=== PATIENT | male | born 1945 | race Caucasian/White ===

== ENCOUNTER → 2020-08-24 | Outpatient (REF) | payer OTHER, BC | LOC: M LAB REF 17:38 | PROVIDERS: ATTEND Dermatology | DX: Z85.820 Personal history of malignant melanoma of skin (principal) ==

== ENCOUNTER → 2021-01-14 | Outpatient (CLI) | payer MEDICARE, BC ==
[~2021-01-14] MED LIST: ATOR1TAB21 PO; BENA1TAB32 PO; EZET10TA21 PO; MELO15TA28 PO; METF-838 PO; PIOG1TAB37 PO; VITAD400CA PO
== END ==
LOC: M LABSMTC 11:03
PROVIDERS: ATTEND Anesthesiology
DX: Z01.812 Encounter for preprocedural laboratory examination (principal); Z20.822 Contact with and (suspected) exposure to COVID-19

== ENCOUNTER 2021-01-18 07:59 | Day surgery (SDC) | payer MEDICARE ==
[~2021-01-18] VITALS: Ht 188 cm; Wt 114.8 kg
[~2021-01-18 07:59] MED LIST changes: +NS 1,000 ML IV ONE
[2021-01-18] MEDS ORDERED: propofoL 200 MG/20 ML VIAL As Ordered ONE (09:23)
--- NOTE | 2021-01-18 09:46 | ROOR ---
Patient Name: Irwin Villanueva Procedure Date: 01/18/2021 9:17 AM Date of : 1945 Age: 75 Room: [facility] Gender: Male Note Status: Finalized Procedure: Colonoscopy Indications: Screening for colorectal malignant neoplasm, Incidental - Positive fecal immunochemical test Providers: Adriel Bennett MD Referring MD: Joaquin Baldwin MD Requesting Provider: Medicines: Monitored Anesthesia Care Complications: No immediate complications. Procedure: Pre-Anesthesia Assessment: - Prior to the procedure, a History and Physical was performed, and patient medications and allergies were reviewed. The patient is competent. The risks and benefits of the procedure and the sedation options and risks were discussed with the patient. All questions were answered and informed consent was obtained. Patient identification and proposed procedure were verified by the physician, the nurse and the anesthesiologist in the procedure room. Mental Status Examination: alert and oriented. Airway Examination: normal oropharyngeal airway and neck mobility. Respiratory Examination: clear to auscultation. CV Examination: normal. Prophylactic Antibiotics: The patient does not require prophylactic antibiotics. Prior Anticoagulants: The patient has taken no previous anticoagulant or antiplatelet agents. ASA Grade Assessment: II - A patient with mild systemic disease. After reviewing the risks and benefits, the patient was deemed in satisfactory condition to undergo the procedure. The anesthesia plan was to use monitored anesthesia care (MAC). Immediately prior to administration of medications, the patient was re-assessed for adequacy to receive sedatives. The heart rate, respiratory rate, oxygen saturations, blood pressure, adequacy of pulmonary ventilation, and response to care were monitored throughout the procedure. The physical status of the patient was re-assessed after the procedure. The Colonoscope was introduced through the anus and advanced to the terminal ileum, with identification of the appendiceal orifice and IC valve. The colonoscopy was performed without difficulty. The patient tolerated the procedure well. The quality of the bowel preparation was good. The terminal ileum, ileocecal valve, appendiceal orifice, and rectum were photographed. Scope insertion time was 2 minutes. Scope withdrawal time was 9 minutes. The total duration of the procedure was 12 minutes. Findings: The perianal and digital rectal examinations were normal. The terminal ileum appeared normal. Four sessile polyps were found in the recto-sigmoid colon. The polyps were 3 to 4 mm in size. These polyps were removed with a cold snare. Resection and retrieval were complete. Verification of patient identification for the specimen was done by the physician and nurse using the patient's name, date and medical record number. Estimated blood loss was minimal. A few small-mouthed diverticula were found in the sigmoid colon. There was no evidence of diverticular bleeding. Non-bleeding external and internal hemorrhoids were found during retroflexion. The hemorrhoids were small. Impression: - The examined portion of the ileum was normal. - Four 3 to 4 mm polyps at the recto-sigmoid colon, removed with a cold snare. Resected and retrieved. - Mild diverticulosis in the sigmoid colon. There was no evidence of diverticular bleeding. - Non-bleeding external and internal hemorrhoids. Recommendation: - Patient has a contact number available for emergencies. The signs and symptoms of potential delayed complications were discussed with the patient. Return to normal activities tomorrow. Written discharge instructions were provided to the patient. - High fiber diet. - Continue present medications. - Await pathology results. - Repeat colonoscopy in 3 - 5 years for surveillance based on pathology results. - Telephone GI clinic for pathology results in 2 weeks. - Return to primary care physician. Procedure Code(s): --- Professional --- 43827, Colonoscopy, flexible; with removal of tumor(s), polyp(s), or other lesion(s) by snare technique Diagnosis Code(s): --- Professional --- Z12.11, Encounter for screening for malignant neoplasm of colon K64.8, Other hemorrhoids K63.5, Polyp of colon K57.30, Diverticulosis of large intestine without perforation or abscess without bleeding CPT copyright 2019 [employer]. All rights reserved. The codes documented in this report are preliminary and upon karate teacher review may be revised to meet current compliance requirements. Adriel Bennett MD Adriel Bennett MD 01/18/2021 9:45:45 AM Electronically signed by Adriel Bennett MD Number of Addenda: 0 Note Initiated On: 01/18/2021 9:17 AM Estimated Blood Loss: Estimated blood loss was minimal.
[2021-01-18 10:00] VITALS: BP 146/70
== END 2021-01-18 10:16 | disposition home or self-care (01) ==
LOC: M OPP 07:59
PROVIDERS: ATTEND Internal Medicine Gastroenterology
DX: K63.5 Polyp of colon (principal); K57.30 Diverticulosis of large intestine without perforation or abscess without bleeding; K64.8 Other hemorrhoids; R19.5 Other fecal abnormalities; E11.9 Type 2 diabetes mellitus without complications; Z79.84 Long term (current) use of oral hypoglycemic drugs; Z79.899 Other long term (current) drug therapy